=== PATIENT | female | born 1980 | race African-American/Black ===

== ENCOUNTER 2018-02-21 06:42 | Emergency (ER) | payer OTHER ==
--- NOTE | 2018-02-21 07:14 | EDPHY ---
H & P Stated Complaint: 9wks , " menstrual cramping since 408", headache Time Seen by Provider: 02/21/18 06:52 HPI/ROS: CHIEF COMPLAINT: Cramping HISTORY OF PRESENT ILLNESS: This is a 37-year-old female SAB 1 with an EDC of 09/25/2018 (9 weeks based on ultrasound of 1-1/2 weeks ago) who presents with 3 hr of left lower quadrant cramping that she describes as feeling like menstrual cramps. The cramping has been constant and is worse with walking. She has not had any vaginal bleeding. She had a headache earlier today but states that this is not troubling her much right now. She is [facility] and was advised to come to the emergency department with these symptoms. REVIEW OF SYSTEMS: A ten system review of systems was performed and is negative with the exception of the items mentioned in the HPI. 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 She is here with her . No tobacco or alcohol use. General Appearance: Alert. Vital signs reviewed. Afebrile. Blood pressure 114/84. Eyes: Pupils equal and round, no conjunctival injection, no discharge. Anicteric. ENT, Mouth: Mucous membranes are moist, no oropharyngeal erythema or edema. Neck: No lymphadenopathy, supple. Respiratory: Lungs are clear to auscultation; no wheezes, rales, or rhonchi. Cardiovascular: Regular rate and rhythm; no murmur, rub, or gallop. Gastrointestinal: Abdomen is soft and nontender, no masses or organomegaly, bowel sounds normal. Skin: Warm and dry, no rashes on exposed skin, normal color. Back: Nontender to palpation over the thoracolumbar spine. No CVAT. Extremities: No lower extremity edema, no calf tenderness or swelling. Neurological: Alert and oriented. Moving all four extremities easily and equally. Deep tendon reflexes in the knees bilaterally 2+. Psychiatric: Normal affect. - Personal History LMP (Females 10-55): Current Tetanus Diphtheria and Acellular Pertussis (TDAP): Yes Tetanus Vaccine Date: 2015 - Medical/Surgical History Hx Asthma: No Hx Chronic Respiratory Disease: No Hx Diabetes: No Hx Cardiac Disease: No Hx Renal Disease: No Hx Cirrhosis: No Hx Alcoholism: No Hx HIV/AIDS: No Hx Splenectomy or Spleen Trauma: No Other PMH: Thyroid removed - Social History Smoking Status: Never smoked Constitutional: Initial Vital Signs Temperature (C) 36.8 C 02/21/18 06:48 Heart Rate 78 02/21/18 06:48 Respiratory Rate 18 02/21/18 06:48 Blood Pressure 114/84 H 02/21/18 06:48 O2 Sat (%) 95 02/21/18 06:48 O2 Delivery Mode Room Air Allergies/Adverse Reactions: propoxyphene [From Darvocet-N] Allergy (Verified 02/21/18 06:47) Home Medications: Medication Instructions Recorded 02/21/18 Synthroid 02/21/18 Medical Decision Making Procedures: A quick bedside ultrasound sound was performed by me which verified an intrauterine with heart be present. A formal bedside ultrasound was ordered. ED Course/Re-evaluation: Dr. Tran called me with report of the OB ultrasound. Shows an intrauterine , in good position, with heart tones in the 150s. He also notes uterine leiomyoma with the largest measuring 5 cm x 4 cm. No subchorionic hemorrhage. This information was relayed to the patient. She is being given a copy of the ultrasound. She feels that her pain is manageable at home with over -the-counter tylenol. She will contact her OBGYN today and arrange follow-up. We reviewed the danger signs that should prompt her to be re-evaluated immediately--with these including Severe intractable pain, bleeding, fever, any new or concerning symptoms. Differential Diagnosis: I considered a differential diagnosis that includes but is not limited to subchorionic hemorrhage, threatened , spontaneous , ovarian cysts, uterine fibroids, urinary tract infection. - Data Points Medications Given: Discontinued Medications Acetaminophen (Tylenol) 500 mg PO EDNOW ONE Stop: 02/21/18 07:36 Last Admin: 02/21/18 07:37 Dose: 500 mg Departure - Departure Disposition: Home, Routine, Self-Care Clinical Impression: Intrauterine Uterine leiomyoma Qualifiers: Uterine leiomyoma location: intramural Qualified Code(s): D25.1 - Intramural leiomyoma of uterus Condition: Good Instructions: First Trimester (ED) Additional Instructions: As we discussed, you have an intrauterine with a normal heartbeat. The ultrasound also shows uterine fibroids, also called leiomyoma. I do not have any printed literature about these but you can find information online. Please call your OB doctor today to arrange follow-up. If you have worsening pain, severe pain, bleeding, fever, new or concerning symptoms--you should be re-evaluated. Referrals: NONE *PRIMARY CARE P,. [Primary Care Provider] - As per Instructions
[2018-02-21] MEDS ORDERED: ACETAMINOPHEN 500 MG TAB PO ONE (07:35)
[2018-02-21 10:48] VITALS: BP 122/73
== END 2018-02-21 10:42 | disposition home or self-care (01) ==
DX: O99.89 Other specified diseases and conditions complicating pregnancy, childbirth and the puerperium (principal); R10.9 Unspecified abdominal pain; D25.1 Intramural leiomyoma of uterus; Z3A.09 9 weeks gestation of pregnancy

== ENCOUNTER → 2018-05-05 | Outpatient (CLI) | payer OTHER | LOC: FIMAGING 09:37 | PROVIDERS: ATTEND Obstetrics & Gynecology | DX: O09.522 Supervision of elderly multigravida, second trimester (principal); O34.12 Maternal care for benign tumor of corpus uteri, second trimester; Z3A.19 19 weeks gestation of pregnancy ==

== ENCOUNTER → 2018-08-05 | Outpatient (CLI) | payer OTHER | LOC: FIMAGING 12:46 ==

== ENCOUNTER → 2018-08-19 | Outpatient (CLI) | payer OTHER | LOC: FIMAGING 13:51 ==